=== PATIENT | male | born 1945 | race Caucasian/White ===

== ENCOUNTER → 2017-03-22 | Outpatient (CLI) | payer MEDICARE, MEDICAID ==
[~2017-03-22] MED LIST: ASPI-808 PO; ASPI325T32 PO; CHOL10003 PO; CHOL200059 PO; CYAN10006 PO; IBUP-1780 PO; LOSA50TA36 PO; METF1000 PO; OMG1KC PO; OXYC-197 PO; PANT40TA3 PO; PRAV80TA2 PO; PROP150T2 PO
== END ==
LOC: CARD 11:04
PROVIDERS: ATTEND Internal Medicine Interventional Cardiology
DX: Z01.810 Encounter for preprocedural cardiovascular examination (principal); E13.9 Other specified diabetes mellitus without complications; R06.02 Shortness of breath; Z72.0 Tobacco use
CPT/HCPCS: 93306

== ENCOUNTER → 2017-03-25 | Outpatient (CLI) | payer MEDICARE, MEDICAID ==
[~2017-03-25] MED LIST changes: +REGADENOSON 0.4 MG/5 ML SYR (LEXISCAN) IV ONE
[2017-03-25] MEDS: CATHETER FLUSH 10 ML SYR IV PRN ×2 (08:20→09:30)
[2017-03-25 09:28] VITALS: BP 151/80
--- NOTE | 2017-03-25 16:13 | STRESS TEST ---
PROCEDURE PHYSICIAN: ZARIA SANABRIA DATE OF PROCEDURE: 03/25/2017 PHARMACOLOGIC NUCLEAR STRESS TEST REPORT: PRIMARY PHYSICIAN: Dr. Milli Dia ATTENDING PHYSICIAN: Dr. Katie Sanabria DIAGNOSES: 1. Diabetes. 2. Coronary artery disease. 3. Shortness of breath. PROCEDURE DETAILS: The patient was brought to the stress test lab after informed consent was taken. Lexiscan stress test was performed according to the protocol. 0.4 mg of Lexiscan was given IV after low grade exercise was performed. Baseline EKG showed sinus rhythm at 71 bpm. Blood pressure 148/[address]. [address]-T wave abnormalities. Maximum heart rate of 74 bpm and blood pressure 162/85 mmHg. The patient did not complain of any chest pain, ST changes or arrhythmias during the stress test. 10.37 mCi of Myoview were given for rest imaging and 30.1 mCi of Myoview were given for stress imaging. TID 1.01. EF: 50%. There is a moderate small fixed apical defect which is likely an artifact considering normal wall motion. Normal wall motion on gaited images. CONCLUSION: 1. Pharmacological stress test is negative for ischemia. 2. Normal LV function. 3. Small fixed apical defect which is likely an artifact. 4. Clinical correlation is required. Job ID: [id number] Dictated Date: 03/25/2017 12:42:50 Separator Inserter Date: 03/25/2017 16:08:26 / eh
== END ==
LOC: CARD 07:45
PROVIDERS: ATTEND Internal Medicine Interventional Cardiology
DX: Z01.810 Encounter for preprocedural cardiovascular examination (principal); I25.10 Atherosclerotic heart disease of native coronary artery without angina pectoris; R06.02 Shortness of breath; E11.9 Type 2 diabetes mellitus without complications; Z72.0 Tobacco use
CPT/HCPCS: 78452; 93017